=== PATIENT | male | born 1950 ===

== ENCOUNTER → 2019-06-04 | Outpatient (CLI) | payer OTHER, MEDICARE | LOC: SJCVC 15:22 | DX: R94.31 Abnormal electrocardiogram [ECG] [EKG] (principal); I35.0 Nonrheumatic aortic (valve) stenosis; I71.6 Thoracoabdominal aortic aneurysm, without rupture; E78.5 Hyperlipidemia, unspecified; Z90.49 Acquired absence of other specified parts of digestive tract; Z79.899 Other long term (current) drug therapy; Z82.49 Family history of ischemic heart disease and other diseases of the circulatory system ==

== ENCOUNTER → 2021-05-02 | Outpatient (CLI) | payer OTHER, MEDICARE | LOC: SJCVC 11:40 | PROVIDERS: ATTEND Internal Medicine | DX: R94.31 Abnormal electrocardiogram [ECG] [EKG] (principal); I35.0 Nonrheumatic aortic (valve) stenosis; I71.6 Thoracoabdominal aortic aneurysm, without rupture; E78.5 Hyperlipidemia, unspecified; Z82.49 Family history of ischemic heart disease and other diseases of the circulatory system; Z79.899 Other long term (current) drug therapy; Z72.89 Other problems related to lifestyle ==

== ENCOUNTER → 2021-05-21 | Outpatient (CLI) | payer OTHER, MEDICARE | LOC: SJCVCIMAG 06:51 | PROVIDERS: ATTEND Internal Medicine | DX: I35.0 Nonrheumatic aortic (valve) stenosis (principal); I51.89 Other ill-defined heart diseases; I77.810 Thoracic aortic ectasia; I35.8 Other nonrheumatic aortic valve disorders ==